=== PATIENT | female | born 1970 | race Caucasian/White ===

== ENCOUNTER 2025-01-28 07:45 | Outpatient (CLI) | payer MEDICAID, SELFPAY ==
[2025-01-28 08:18] LABS: Glucose,Fasting 86 mg/dl (74-100)
== END 2025-01-28 23:59 | disposition home or self-care (01) ==
PROVIDERS: PCP Family Medicine; Visit Provider Nurse Practitioner Family
DX: E11.9 Type 2 diabetes mellitus without complications (principal)
CPT/HCPCS: 36415; 82947

== ENCOUNTER 2025-01-30 07:02 | Outpatient (CLI) | payer MEDICAID, SELFPAY ==
--- OUTSIDE RECORDS SUMMARY | 2025-01-30 07:06 | XMS_ITS | Clinical Summary ---
Author Organization [facility] Address [address] [place] [address] Phone Care Team Providers Care Music Pastor Name Role Phone Unavailable Unavailable Conditions or Problems No information available. Medications No information available. Medications Administered No information available. Allergies, Adverse Reactions, Alerts No information available. Results No information available. Plan of Care No information available. Procedures No information available. Vital Signs No information available. Immunizations No information available. Advance Directives No information available.
[2025-01-30 07:14] LABS: Basophils % 0.4 % (0.1-2.0); Eosinophils # 0.3 Kmm3 (0.0-0.4); Eosinophils % 3.8 % (0.1-12.0); Hematocrit 39.8 % (37.0-47.0); Hemoglobin 11.9 g/dL (12.2-16.2); Immature Granulocytes # 0.02 10^3uL; Immature Granulocytes % 0.2 %; Lymphocytes # 0.8 K/mm3 (0.7-4.5); Lymphocytes % 10.1 % (10-50); Mean Corpuscular HGB Conc 29.9 g/dL (31.8-35.4); Mean Corpuscular Hemoglobin 25.2 pg (27.0-31.2); Mean Corpuscular Volume 84.3 fl (81-99); Mean Platelet Volume 10.2 fl (7.4-10.4); Monocytes # 0.5 K/mm3 (0.1-1.0); Monocytes % 6.4 % (1.7-9.3); Neutrophils # 6.5 K/mm3 (1.8-7.8); Neutrophils % 79.1 % (37.0-80.0); Nucleated Red Blood Cells # 0 10^3/uL; Nucleated Red Blood Cells % 0 %; Platelet Count 259 K/mm3 (142-424); Red Blood Count 4.72 M/mm3 (4.20-5.40); Red Cell Distribution Width 16.5 % (11.5-17.5); White Blood Count 8.2 K/mm3 (4.8-10.8)
[2025-01-30 08:30] LABS: Albumin Level 3.3 g/dl (3.5-5.0); Chloride 101 mmol/L (98-107)
[2025-01-30 08:31] LABS: Potassium 4.9 mmoL/L (3.5-5.1); Sodium 138 mmol/L (136-145)
[2025-01-30 08:33] LABS: Alanine Aminotransferase 32 U/L (12-78); Aspartate Amino Transferase 26 U/L (14-36); Bilirubin,Total 0.2 mg/dl (0.2-1.3); Blood Urea Nitrogen 55 mg/dl (7-17); Estimated Glomerular Filt Rate 65 ml/min (>60); GFR (African American) 78 ML/MIN (>60)
[2025-01-30 08:34] LABS: Alkaline Phosphatase 92 U/L (38-126); Calcium 9.2 mg/dl (8.4-10.2); Cholesterol 127 mg/dl (140-200); Glucose 91 mg/dl (74-100); HDL Cholesterol 43 mg/dl (40-60); Iron 31 ug/dL (37-170); Triglycerides 72 mg/dl (30-150); VLDL Cholesterol 14 mg/dL (0-40)
[2025-01-30 08:35] LABS: Albumin/Globulin Ratio 1.2 (1.1-1.8); Globulin 2.7 g/dL (1.3-3.2); Hemoglobin A1C 6.2 % (4.0-6.0)
[2025-01-30 08:46] LABS: Direct LDL Cholesterol 47.17 mg/dL (100-129)
[2025-01-30 08:51] LABS: 25-OH Vitamin D, Total 26.7 ng/mL (30-100)
[2025-01-30 09:10] LABS: Ferritin 395 ng/ml (11.1-264)
[2025-01-30 10:26] LABS: Vitamin B12 533 pg/mL (239-931)
[2025-01-30 10:31] LABS: Anion Gap 11.9 mEq/L (5-15); Carbon Dioxide 30 mmol/L (22.0-30.0)
== END 2025-01-30 23:59 | disposition home or self-care (01) ==
PROVIDERS: PCP Family Medicine; Visit Provider Nurse Practitioner Family
DX: E11.9 Type 2 diabetes mellitus without complications (principal); D64.9 Anemia, unspecified; E55.9 Vitamin D deficiency, unspecified
CPT/HCPCS: 36415; 80053; 80061; 82306; 82607; 82728; 82746; 83036; 83540; 85025

== ENCOUNTER 2025-05-15 06:05 | Outpatient (CLI) | payer MEDICAID, SELFPAY ==
--- OUTSIDE RECORDS SUMMARY | 2025-05-15 06:07 | XMS_ITS | Clinical Summary ---
Author Organization [facility] Address [address] [place] [address] Phone Care Team Providers Care Assembler Surgical Garment Name Role Phone Unavailable Unavailable Conditions or Problems No information available. Medications No information available. Medications Administered No information available. Allergies, Adverse Reactions, Alerts No information available. Results No information available. Plan of Care No information available. Procedures No information available. Vital Signs No information available. Immunizations No information available. Advance Directives No information available.
[2025-05-15 06:18] LABS: Hematocrit 39.3 % (37.0-47.0); Hemoglobin 11.8 g/dL (12.2-16.2); Immature Granulocytes % 0.2 %; Mean Corpuscular HGB Conc 30.0 g/dL (31.8-35.4); Mean Corpuscular Hemoglobin 25.9 pg (27.0-31.2); Mean Corpuscular Volume 86.4 fl (81-99); Nucleated Red Blood Cells % 0 %; Platelet Count 211 K/mm3 (142-424); Red Blood Count 4.55 M/mm3 (4.20-5.40); Red Cell Distribution Width-SD 47.1 fL; White Blood Count 4.5 K/mm3 (4.8-10.8)
[2025-05-15 06:27] LABS: Alanine Aminotransferase 14 U/L (12-78); Albumin Level 3.5 g/dl (3.5-5.0); Albumin/Globulin Ratio 1.5 (1.1-1.8); Alkaline Phosphatase 117 U/L (38-126); Anion Gap 10.6 mEq/L (5-15); Aspartate Amino Transferase 18 U/L (14-36); Bilirubin,Total 0.4 mg/dl (0.2-1.3); Blood Urea Nitrogen 44 mg/dl (7-17); Calcium 8.9 mg/dl (8.4-10.2); Carbon Dioxide 29 mmol/L (22.0-30.0); Chloride 104 mmol/L (98-107); Creatinine,Serum 1.50 mg/dl (0.52-1.04); Estimated Glomerular Filt Rate 36 ml/min (>60); GFR (African American) 43 ML/MIN (>60); Globulin 2.4 g/dL (1.3-3.2); Glucose 51 mg/dl (74-100); Potassium 4.6 mmoL/L (3.5-5.1); Sodium 139 mmol/L (136-145); Total Protein,Serum 5.9 g/dl (6.3-8.2)
[2025-05-15 07:08] LABS: 25-OH Vitamin D, Total 28.8 ng/mL (30-100)
[2025-05-15 19:35] LABS: Hemoglobin A1C 5.3 % (4.0-6.0)
== END 2025-05-15 23:59 | disposition home or self-care (01) ==
PROVIDERS: PCP Family Medicine; Visit Provider Family Medicine
DX: E55.9 Vitamin D deficiency, unspecified; D50.9 Iron deficiency anemia, unspecified; E11.9 Type 2 diabetes mellitus without complications
CPT/HCPCS: 36415; 80053; 82306; 83036; 85025

== ENCOUNTER 2025-07-22 08:49 | Outpatient (CLI) | payer MEDICAID, SELFPAY ==
--- OUTSIDE RECORDS SUMMARY | 2025-06-22 23:18 | XMS_ITS | Continuity of Care Document ---
Author Organization [facility] Phone Care Team Providers Care Campus Manager Name Role Phone NO, DEFINED P Primary Care Unavailable STACY GUILLEN Admitting Unavailable STACY GUILLEN Primary Attending Unavailable STACY GUILLEN Unavailable Unavailable RESULTS Patient: RICARDA KELLY Date of : 1970 0 LABORATORY RESULTS Information is not available LABORATORY NARRATIVE RESULTS Information is not available RADIOLOGY RESULTS ORDER 100: SWALLOW FUNCT GOLDEN E VIDEO (LOINC: 20498-2) ORDER DATE: June 19, 2025 1:21:00 PM [facility] PERFORMING LAB: [address] [id number] Final Result Date: June 19, 2025 6:47:[address] [address] Name: LETICIA CHOWDARY Exam Date: 06/19/2025 : 1970 Age 54 years Gender: F Physician: STACY GUILLEN Facility: [facility] Facility HSV: Outpatient Exam: SWALLOW FUNCT CINE VIDEO EXAM: SWALLOW FUNCT CINE VIDEO Performed by: EDDIE Geiger. Attending Physician: Dr. Mono Banda MD. INDICATION: dysphagia unspecified. PMHx: CVA, dementia. Current diet: Mechanical soft, nectar thick liquids. FINDINGS/TECHNIQUE: Under fluoroscopic evaluation cineradiography/videoradiography recordings were performed in conjunction with the speech-language pathologist (ELECTRICAL DESIGNER DRAFTER). Various liquid, solid and/or semi-solid barium preparations were used to assess swallowing function.Flash penetration visualized with thin liquids but no aspiration. Recorded fluoroscopy was used for this study. FLUORO TIME: 1.5 minutes. Reference air kerma: 14.685 mGy. IMPRESSION: Modified barium swallow. Flash penetration visualized with thin liquids but no aspiration. Please see formal report by speech-language pathology for findings and recommendations. Electronically signed by: Mono Banda MD 06/19/2025 01:47 PM [facility] [place] Dictated By: Mono Banda Transcribed By: Transcribed On: 06/19/2025 1:47 PM Electronically signed by: Mono Banda 06/19/2025 Thank you for referring LETICIA CHOWDARY to [facility]. Legally authenticated by KYREE FAN 2025-06-19 13:47:36 PATHOLOGY NARRATIVE RESULTS Information is not available MICROBIOLOGY RESULTS No Micro Labs/Results Exist for Patient BLOOD ADMIN RESULTS Information is not available MEDICATIONS HOME MEDICATIONS Status RXNORM NDC Medication Dose Route Frequency Dates Comments Reported By Updated By Drug Treatment Unknown DISCHARGE MEDICATIONS Status RXNORM NDC Medication Dose Route Frequency Dates Dis pense Data Comments Physician Updated By No Discharge Medication Info rmation Available INPATIENT MEDICATIONS Status RXNORM NDC Medication Dose Route Frequency Rat e Quantity Dates Indication Dispense Data Comments Physician Updated By No Inpatient Medication Info rmation Available SOCIAL HISTORY SOCIAL HISTORY - Smoking Status SNOMED-CT Social History Element Description Effective Dates Offered Cessation Comment Updated By [id number] Smoking Status Unknown If Ever Smoked SOCIAL HISTORY - Gender Sex: Female SOCIAL HISTORY - Status : status i nformation is not available Intention in Next Year: intention information is not available SOCIAL HISTORY - Assessments Code System Description Status Date Value of Assessment Updated By Comment Assessment Information is no t available SOCIAL HISTORY - Cheesh-Na Affiliation Cheesh-Na information is not av ailable SOCIAL HISTORY - Legal Sex Legal Sex information is not available SOCIAL HISTORY - Sexual Behavior Sexual Orientation Gender Identity SNOMED-CT Description SNO MED -CT Description Activity Level No of Partners Partner Type UpdatedBy Information is not available SOCIAL HISTORY - Occupation Occupation information is no t available HEALTH CONCERNS Problems Concern Status Health Concern problem infor mation not available. Smoking Status Status Years Used Consumed packs p er day Health Concern smoking histo ry information not available. Family History Concern Status Health Concern family histor y information not available. ENCOUNTERS ENCOUNTER INFORMATION Reason for Visit [place] [facility] Admission June 19, 2025 1:10:00 [place] [id number] Discharge June 19, 2025 1:10:00 PM [place] DISCHARGED TO HOME OR SELF CARE ENCOUNTER DIAGNOSES Notes information is not jacqueline ilable. Code System Diagnosis Onset Date Diagnosis information is not available. ABSTRACT DIAGNOSES Code System Diagnosis Updated By Abatement Date R13.10 ICD10 DYSPHAGIA, UNSPECIFIED [id number] on June 23, 2025 4:17:42 AM UTC Z88.0 ICD10 ALLERGY STATUS TO PENICILLIN [id number] on June 23, 2025 4:17:42 AM UTC R13.10 ICD10 DYSPHAGIA, UNSPECIFIED [id number] on June 23, 2025 4:17:42 AM UTC Z88.0 ICD10 ALLERGY STATUS TO PENICILLIN [id number] on June 23, 2025 4:17:42 AM UTC CARE TEAM Care Campus Manager Role DEFINED NO Primary Care STACY GUILLEN Admitting STACY GUILLEN Primary Attending STACY GUILLEN Referring CARE TEAM CARE radio intelligence operator Role on Team Location Telecom Status Start Date End Satnam e Updated By NO DEFINED PRIMARY C PCP normal June 19, 2025 5:00:00 AM [place] June 19, 2025 1:10:00 PM UTC [id number] on June 19, 2025 1:13:20 PM UTC WILMER KUMAR PCP normal June 09, 2025 2:23:16 PM UTC June 19, 2025 5:00:00 AM UTC [id number] on June 19, 2025 1:13:20 PM UTC WILMER KUMAR Referring normal June 09, 2025 2:23:16 PM UTC June 19, 2025 1:10:00 PM UTC [id number] on June 19, 2025 1:13:20 PM [place] WILMER KUMAR Attending normal June 09, 2025 2:23:16 PM [place] June 19, 2025 1:10:00 PM UTC [id number] on June 19, 2025 1:13:20 PM [place] WILMER KUMAR Admitting normal June 09, 2025 2:23:16 PM UTC June 19, 2025 1:10:00 PM UTC [id number] on June 19, 2025 1:13:20 PM UTC
--- OUTSIDE RECORDS SUMMARY | 2025-07-22 09:13 | XMS_ITS | Clinical Summary ---
Author Organization [facility] Address [address] [place] [address] Phone Care Team Providers Care Parent Educator Name Role Phone Unavailable Unavailable Conditions or Problems No information available. Medications No information available. Medications Administered No information available. Allergies, Adverse Reactions, Alerts No information available. Results No information available. Plan of Care No information available. Procedures No information available. Vital Signs No information available. Immunizations No information available. Advance Directives No information available.
[2025-07-22 09:48] LABS: Iron 82 ug/dL (37-170)
[2025-07-22 09:57] LABS: Total Iron Binding Capacity 213 ug/dL (265-497)
[2025-07-22 10:23] LABS: Ferritin 492 ng/ml (11.1-264)
== END 2025-07-22 23:59 | disposition home or self-care (01) ==
LOC: LAB.DROPOF 08:49
PROVIDERS: PCP Family Medicine; Visit Provider Nurse Practitioner Family
DX: D50.9 Iron deficiency anemia, unspecified (principal); F39 Unspecified mood [affective] disorder; I63.9 Cerebral infarction, unspecified
CPT/HCPCS: 36415; 80175; 82728; 83540; 83550